=== PATIENT | male | born 1960 | race African-American/Black ===

== ENCOUNTER 2024-07-16 18:35 | Emergency (ER) | payer OTHER ==
[~2024-07-16] VITALS: Ht 182.9 cm; Wt 75.0 kg
[2024-07-16 18:40] VITALS: BP 139/87; PULSE 74; RESP 18; TEMP 98.8; O2SAT 99
== END 2024-07-16 21:00 | disposition home or self-care (01) ==
LOC: ER 18:35
DX: T40.991A Poisoning by other psychodysleptics [hallucinogens], accidental (unintentional), initial encounter (principal); Y92.9 Unspecified place or not applicable
CPT/HCPCS: 82962; 99283